=== PATIENT | female | born 1980 | race Caucasian/White ===

== ENCOUNTER 2020-03-25 07:20 | Inpatient (IN) | payer MEDICARE, OTHER ==
[2020-03-25 08:39] VITALS: BMI 42.5
[2020-03-25 08:41] LABS: BASO % 0.2 % (0-2.0); EOS % 1.2 % (0-4.5); HEMATOCRIT 34.6 % (32.4-45.2); HEMOGLOBIN 11.7 GM/dL (10.7-15.3); LYMPH % 21.8 % (8-40); MCH 29.7 pg (25.7-33.7); MCHC 33.7 g/dl (32.0-36.0); MEAN CELL VOLUME 88.2 fl (80-96); MEAN PLT VOLUME 6.9 fl (7.5-11.1); MONO % 6.6 % (3.8-10.2); NEUT % 70.2 % (42.8-82.8); PLATELET COUNT 238 K/MM3 (134-434); RBC 3.93 M/mm3 (3.60-5.2); RDW 14.7 % (11.6-15.6); WHITE BLOOD COUNT 7.9 K/mm3 (4.0-10.0)
[2020-03-25] MEDS ORDERED: ELECTROLYTE-148 SOLN 500 ML IV SCH (08:45)
[2020-03-25] MEDS ORDERED: CITRIC ACID/SODIUM CITRATE 30 ML UNIT-DOSE CUP PO ONE ×2 (08:45→09:14)
[2020-03-25 08:48] LABS: INR 0.92 (0.83-1.09); PROTHROMBIN TIME (PATIENT) 10.8 SEC (9.7-13.0)
[2020-03-25 08:50] LABS: ACTIVATED PTT 25.5 SECONDS (25.2-36.5)
[2020-03-25 09:07] LABS: BLOOD UREA NITROGEN 8.1 mg/dL (7-18); CALCIUM 9.1 mg/dL (8.5-10.1); CREATININE 0.6 mg/dL (0.55-1.3); POTASSIUM 3.9 mmol/L (3.5-5.1)
[2020-03-25] MEDS ORDERED: ELECTROLYTE-148 SOLN 1,000 ML IV SCH ×2 (09:15)
--- NOTE | 2020-03-25 09:19 | HP ---
Past Medical History - Primary Care Physician PCP:: Sharmaine Ayala - Admission Chief Complaint: Scheduled rpt c/s x 2 with BTL (DR Pernell Ayala) History of Present Illness: 39 yo EDC 04/10/2020 EGA 38 weeks scheduled for rpt c/s x 2 with BTL today due to h/o chronic HTN History Source: Patient Limitations to Obtaining History: No Limitations - Past Medical History GRAB HOOKER: Yes: Migraine ...: 4 ...Para: 2 ...Term: 2 ...: 0 ...Spon : 1 ...Induced : 0 ...Living Children: 2 ...Multiple Gestation: 0 ...LMP: 07/05/19 ... Weeks Gestation by Dates: 37.5 ...EDC by Dates: 04/10/20 ...EDC by Sono: 04/07/20 - Past Surgical History Past Surgical History: Yes: Hx Myomectomy: No Hx Transabdominal Cerclage: No - Smoking History Smoking history: Never smoked Have you smoked in the past 12 months: No - Alcohol/Substance Use Hx Alcohol Use: No History of Substance Use: reports: None - Social History Usual Living Arrangement: Yes: With Spouse History of Recent Travel: No Home Medications - Allergies Allergies/Adverse Reactions: Allergies Allergy/AdvReac Type Severity Reaction Status Date / Time No Known Allergies Allergy Verified 03/25/20 08:17 - Home Medications Home Medications: Ambulatory Orders Vits96/Iron Fum/Folic [ Tablet] 1 each PO DAILY 03/25/20 Family Medical History Family History: Unremarkable Review of Systems - Review of Systems Constitutional: reports: No Symptoms Eyes: reports: No Symptoms HENT: reports: No Symptoms Neck: reports: No Symptoms Cardiovascular: reports: No Symptoms Respiratory: reports: No Symptoms Gastrointestinal: reports: No Symptoms Genitourinary: reports: No Symptoms Breasts: reports: No Symptoms Reported Musculoskeletal: reports: No Symptoms Integumentary: reports: No Symptoms Neurological: reports: No Symptoms Endocrine: reports: No Symptoms Hematology/Lymphatic: reports: No Symptoms Psychiatric: reports: No Symptoms Physical Exam - Maternity Vital Signs: Vital Signs Temperature 98.6 F 03/25/20 08:25 Pulse Rate 99 H 03/25/20 08:25 Respiratory Rate 20 03/25/20 08:25 Blood Pressure 136/79 03/25/20 08:25 O2 Sat by Pulse Oximetry (%) Constitutional: Yes: Well Nourished, No Distress Eyes: Yes: WNL HENT: Yes: WNL Neck: Yes: WNL Cardiovascular: Yes: WNL Lungs: Clear to auscultation Breast(s): Yes: WNL - Abdominal Exam/OB Fundal Height: 38 Number of Fetuses: Single Presentation: Vertex Contractions: No Regularity: Irritability Intensity: Unaware Monitor Mode: External Heart Rate Location: [facility] Category: I Accelerations: Uniform Decelerations: None - Vaginal Exam/OB Vaginal Bleeding: No Dilatation (cm): defer Presentation: Vertex/Position - Physical Exam Musculoskeletal: Yes: WNL Extremities: Yes: WNL Edema: No Integumentary: Yes: WNL Deep Tendon Reflex Grade: Normal +2 ...Motor Strength: WNL Psychiatric: Yes: WNL - Labs Lab Results: CBC, BMP 03/25/20 08:00 03/25/20 08:00 Hemorrhage Risk Assessment - Risk Factors Medium Risk Factors: Yes: Prior , uterine surgery,or multiple laparo tomies, Obesity (BMI >40) Risk Score: 2 Risk Level: High Risk Problem List - Problems (1) AMA (advanced maternal age) multigravida 35+ Code(s): O09.529 - SUPERVISION OF ELDERLY MULTIGRAVIDA, UNSPECIFIED TRIMESTER (2) Previous delivery affecting , antepartum Code(s): O34.219 - MATERNAL CARE FOR UNSP TYPE SCAR FROM PREVIOUS DEL (3) Chronic benign essential hypertension, antepartum Code(s): O10.019 - PRE-EXISTING ESSENTIAL HTN COMP , UNSP TRIMESTER (4) 38 weeks gestation of Code(s): Z3A.38 - 38 WEEKS GESTATION OF Assessment/Plan Admit to LD Rpt c/s x 2 with BTL Risks, benefits, alternatives of rpt c/s with BTL discussed at length with pt and her ; all questions answered, pt fully understand the BTL is permanent sterilization; pt signed the consent form.
[2020-03-25] MEDS ORDERED: ONDANSETRON 4 MG/2 ML VIAL IVPUSH PRN (09:27)
[2020-03-25] MEDS ORDERED: morphine SULFATE/PF 0.5 MG/ML (2cc Syringe - QUVA) SPIN ONE (09:27)
[2020-03-25] MEDS ORDERED: OXYTOCIN 20 UNITS in 0.9% NS 20 UNIT/1,000 ML INFUS.BAG IV ONE ×2 (09:44→11:31)
[2020-03-25] MEDS ORDERED: morphine SULFATE/PF 0.5 MG/ML (2cc Syringe - QUVA) ONE (09:47)
[2020-03-25] MEDS ORDERED: ceFAZolin SODIUM 1 GM VIAL ONE (09:47)
[2020-03-25] MEDS ORDERED: SUCCINYLCHOLINE CHLORIDE 200 MG/10 ML SYRINGE ONE (09:48)
[2020-03-25] MEDS ORDERED: SODIUM CHLORIDE 0.9% P/F 10 ML VIAL IJ ONE (09:48)
[2020-03-25] MEDS ORDERED: PROPOFOL 20 ML ONE (09:48)
[2020-03-25] MEDS ORDERED: ePHEDrine SULFATE 50 MG/1 ML AMPULE ONE (09:51)
[2020-03-25] MEDS ORDERED: OXYTOCIN 10 UNITS/ML VIAL ONE (09:53)
[2020-03-25 12:15] LABS: CORD BASE EXCESS -3.4 mmol/L (0-2); CORD HCO3 24.2 mmHg (20-29); CORD PCO2 53.1 mmHg (30-78); CORD pH 7.277 (7.14-7.44)
[2020-03-25 12:25] LABS: CORD HCO3 25.4 mmHg (20-29); CORD PCO2 63.6 mmHg (30-78); CORD pH 7.219 (7.14-7.44)
[2020-03-25] MEDS ORDERED: METHYLERGONOVINE MALEATE 0.2 MG/1 ML AMP IM PRN (12:54)
[2020-03-25] MEDS ORDERED: oxyCODONE HCL 5 MG TABLET PO PRN (12:56)
[2020-03-25] MEDS ORDERED: IBUPROFEN 800 MG/8 ML IJ IVPB PRN (12:56)
[2020-03-25] MEDS ORDERED: ACETAMINOPHEN 1000 MG/100 ML VIAL (NON FORMULARY) IVPB PRN (12:59)
[2020-03-25] MEDS ORDERED: OXYTOCIN 20 UNITS in 0.9% NS 20 UNIT/1,000 ML INFUS.BAG IV SCH (13:00)
--- NOTE | 2020-03-25 13:07 | OP ---
Operative Note - Note: Operative Date: 03/25/20 Pre-Operative Diagnosis: 39 yo @ 38 weeks. Previous c/s, unknown scar. Chronic HTN. Obesity Operation: Rpt c/s x 2 with BTL via Pfannenstiel Incision Findings: Large lower segment fibroid 10 cm Baby girl born 9/9 Cord gases and blood collected Post-Operative Diagnosis: Same as Pre-op Surgeon: Gale Sainz Billet Worker: Efren Nieto Anesthesiologist/CORPORATE SERVICES MANAGER: Selena Quinones Anesthesia: Spinal Specimens Removed: placenta and membranes. Cord gases and blood Estimated Blood Loss (mls): 800 Fluid Volume Replaced (mls): 1,000 Operative Report Dictated: No
--- NOTE | 2020-03-25 15:13 | OP ---
DATE OF OPERATION: 03/25/2020 PREOPERATIVE DIAGNOSIS: [age] years old, G4, para 2-0-1-2 at 38 weeks, previous section and known scar, chronic hypertension, obesity. SURGERY: Repeat section x2 with bilateral tubal ligation via Pfannenstiel incision. SURGEON: Von De La Cruz MD CHANNELING MACHINE RUNNER: CHEYANNE Farley ANESTHESIA: ELIESER Keller, spinal FINDINGS: A large lower segment fibroid 10 cm, baby girl born, 9, 9. Cord gases and blood collected. POSTOPERATIVE DIAGNOSIS: [age] years old, G4, para 2-0-1-2 at 38 weeks, previous section and known scar, chronic hypertension, obesity. Fibroid uterus. SPECIMEN REMOVED: Placenta and membrane. Cord gas and blood. COMPLICATIONS: None. ESTIMATED BLOOD LOSS: 800 mL. FLUIDS REPLACED: Ringer's lactate 1000 mL. URINE OUTPUT: Clear urine, 300 mL, at the end of the procedure. DESCRIPTION OF PROCEDURE: The patient was taken to the operating room where spinal anesthesia was found to be adequate. She was then prepped and draped in the usual sterile fashion, dorsal supine position with a leftward tilt. A Pfannenstiel skin incision was made with a scalpel and carried through to the underlying layers of fascia with the Bovie. The fascia was incised in the midline, and the incision was extended laterally with bandage scissors. At the superior and the inferior aspect, the fascial incision was grasped with Jonh clamps, elevated, and now the underlying rectus muscles dissected off bluntly. The rectus muscles were then in the midline, the peritoneum identified, tented up, and entered sharply with Metzenbaum scissors. The peritoneal incision was then extended superiorly and inferiorly with good visualization of the bladder. Bladder blade was then inserted and vesicouterine peritoneum identified, grasped with pickups and entered sharply with Metzenbaum scissors. This incision was extended laterally and the bladder flap created digitally. The bladder blade was then reinserted, the lower uterine segment incised in transverse fashion with a scalpel. The uterine incision was extended laterally with bandage scissors. The bladder blade was removed and the infant's head delivered atraumatically. The nose and mouth were suctioned and the cord clamped and cut. The infant was handed off to the waiting camp dishwasher. The placenta was then removed manually, the uterus exteriorized and cleared of all clots and debris. Uterine incision was repaired with 1-0 chromic in a running locked fashion. Second layer of the same suture was used to obtain excellent hemostasis. Attention then was turned to the fallopian tubes, which were suture ligated, cut, and cauterized bilaterally without bleeding noted. Good hemostasis was assured. The gutters were cleared of all clots and debris, the uterus returned to the abdomen. Peritoneum was closed with 2-0 chromic. Fascia was reapproximated with 0 Vicryl in a running fashion, and the skin was closed with 4-0 Vicryl subcuticular fashion. The patient tolerated the procedure well. Sponge, lap, needle counts were correct x2. The patient was taken to recovery room in stable condition. VON DE LA CRUZ MD [id number]
[2020-03-25] MEDS: SIMETHICONE 80 MG TAB.CHEW (FP) PO SCH ×3 (15:27→22:00)
[2020-03-25] MEDS: CEFAZOLIN 1 GM/D5W 1 GM/50 ML BAG IVPB SCH (18:02)
[2020-03-26] MEDS: SIMETHICONE 80 MG TAB.CHEW (FP) PO SCH ×6 (01:50→21:27)
[2020-03-26] MEDS: CEFAZOLIN 1 GM/D5W 1 GM/50 ML BAG IVPB SCH ×2 (02:29→09:41)
[2020-03-26 08:39] LABS: BASO % 0.4 % (0-2.0); EOS % 1.2 % (0-4.5); HEMATOCRIT 34.1 % (32.4-45.2); HEMOGLOBIN 11.7 GM/dL (10.7-15.3); LYMPH % 11.3 % (8-40); MCH 30.5 pg (25.7-33.7); MCHC 34.3 g/dl (32.0-36.0); MEAN CELL VOLUME 88.9 fl (80-96); MEAN PLT VOLUME 6.8 fl (7.5-11.1); MONO % 4.3 % (3.8-10.2); NEUT % 82.8 % (42.8-82.8); PLATELET COUNT 222 K/MM3 (134-434); RBC 3.83 M/mm3 (3.60-5.2); RDW 15.2 % (11.6-15.6); WHITE BLOOD COUNT 11.3 K/mm3 (4.0-10.0)
[2020-03-26] MEDS: MAGNESIUM HYDROX 2400MG/30ML ORAL SUSPENSION 30 ML CUP PO SCH (09:40)
[2020-03-26] MEDS: ENOXAPARIN NA (PORCINE) 40 MG/0.4 ML DISP.SYRIN SQ SCH (09:40)
[2020-03-26] MEDS: IBUPROFEN 600 MG TABLET (FP) PO PRN ×2 (09:50→21:27)
[2020-03-26] MEDS: ACETAMINOPHEN 325 MG TABLET (FP) PO PRN ×2 (09:51→21:28)
[2020-03-26] MEDS ORDERED: DIPHTH,PERTUSS(ACELL),TET 0.5 ML DISP.SYRIN IM ONE (10:00)
[2020-03-26] MEDS ORDERED: IBUPROFEN 600 MG TABLET (FP) PO PRN (12:54)
[2020-03-26] MEDS ORDERED: BISACODYL 10 MG SUPP.RECT RC SCH (13:00)
--- NOTE | 2020-03-26 13:35 | PN ---
Post Progress Note Type of Delivery: Repeat C/S Vital Signs: Vital Signs Temperature 98.9 F 03/26/20 06:00 Pulse Rate 106 H 03/26/20 06:00 Respiratory Rate 18 03/26/20 06:00 Blood Pressure 137/68 03/26/20 06:00 O2 Sat by Pulse Oximetry (%) 99 03/25/20 12:45 Breast Exam: Yes: Soft Uterus: Yes: Fundus Firm Incision: Yes: Dressing dry and intact Abdomen/GI: Yes: Abdomen soft Lochia: Yes: Rubra Lochia, amount: Small Extremities: Yes: Calves non-tender - Labs Labs: CBC WBC 11.3 K/mm3 (4.0-10.0) H 03/26/20 08:13 RBC 3.83 M/mm3 (3.60-5.2) 03/26/20 08:13 Hgb 11.7 GM/dL (10.7-15.3) 03/26/20 08:13 Hct 34.1 % (32.4-45.2) 03/26/20 08:13 MCV 88.9 fl (80-96) 03/26/20 08:13 MCH 30.5 pg (25.7-33.7) 03/26/20 08:13 MCHC 34.3 g/dl (32.0-36.0) 03/26/20 08:13 RDW 15.2 % (11.6-15.6) 03/26/20 08:13 Plt Count 222 K/MM3 (134-434) 03/26/20 08:13 MPV 6.8 fl (7.5-11.1) L 03/26/20 08:13 Absolute Neuts (auto) 9.4 K/mm3 (1.5-8.0) H 03/26/20 08:13 Neutrophils % 82.8 % (42.8-82.8) 03/26/20 08:13 Lymphocytes % 11.3 % (8-40) D 03/26/20 08:13 Monocytes % 4.3 % (3.8-10.2) 03/26/20 08:13 Eosinophils % 1.2 % (0-4.5) 03/26/20 08:13 Basophils % 0.4 % (0-2.0) 03/26/20 08:13 Nucleated RBC % 0 % (0-0) 03/26/20 08:13 Assessment/Plan Postop day 1 ambulate advance diet
--- NOTE | 2020-03-26 16:52 | PN ---
Progress Note (short form) - Note Progress Note: Post op day#1.S/P C Section under spinal with duramorph uneventful.Patient stable and c/o some pain for which she is on medication.No any anesthesia related problem.Patient Dc from the anesthesia care.
[2020-03-26 22:51] VITALS: BP 126/81; PULSE 111; TEMP 98.3
[2020-03-27] MEDS: SIMETHICONE 80 MG TAB.CHEW (FP) PO SCH ×4 (01:02→12:27)
[2020-03-27] MEDS: ACETAMINOPHEN 325 MG TABLET (FP) PO PRN (06:21)
[2020-03-27] MEDS: IBUPROFEN 600 MG TABLET (FP) PO PRN (06:22)
[2020-03-27] MEDS: MAGNESIUM HYDROX 2400MG/30ML ORAL SUSPENSION 30 ML CUP PO SCH (09:24)
[2020-03-27] MEDS: ENOXAPARIN NA (PORCINE) 40 MG/0.4 ML DISP.SYRIN SQ SCH (09:24)
--- NOTE | 2020-03-27 11:47 | DS ---
Physical Exam-SIGNAL AND COMMUNICATIONS MAINTAINER Vital Signs: Vital Signs Temperature 98.3 F 03/26/20 22:00 Pulse Rate 111 H 03/26/20 22:00 Respiratory Rate 18 03/26/20 22:00 Blood Pressure 126/81 03/26/20 22:00 O2 Sat by Pulse Oximetry (%) 99 03/26/20 22:00 Constitutional: Yes: Well Nourished, No Distress, Calm Eyes: Yes: WNL, Conjunctiva Clear, EOM Intact HENT: Yes: WNL, Atraumatic, Normocephalic Neck: Yes: WNL, Supple, Trachea Midline Cardiovascular: Yes: WNL, Regular Rate and Rhythm Respiratory: Yes: WNL, Regular, CTA Bilaterally Gastrointestinal: Yes: WNL ...Rectal Exam: Yes: WNL Renal/: Yes: WNL Breast(s): Yes: WNL Musculoskeletal: Yes: WNL Extremities: Yes: WNL Integumentary: Yes: WNL Neurological: Yes: WNL, Alert, Oriented ...Motor Strength: WNL Psychiatric: Yes: WNL, Alert, Oriented Labs: CBC, BMP 03/26/20 08:13 03/25/20 08:00 Delivery - Delivery Type of Anesthesia: Spinal Episiotomy/Laceration: None EBL (cc): 800 Delivery, Single - Stages of Labor Date of Delivery: 03/25/20 Time of Delivery: 10:31 Time Placenta Delivered: 10:32 - Condition of Infant Engineering Psychologist/Inspector Mechanical Present: Yes Name: Joni Olguin Gender: Female Weight: 4.252 kg Position: OA Total Hours ROM (Hrs/Mins): 1 minute - 1 Minute Total Score: 9 5 Minutes Total Score: 9 - [place] Feeding Plan Initial Plan: Elected not to breastfeed exclusively throughout hospitalization Discharge Summary Problems reviewed: Yes Reason For Visit: C SECTION Current Active Problems 38 weeks gestation of (Acute) AMA (advanced maternal age) multigravida 35+ (Acute) Chronic benign essential hypertension, antepartum (Acute) Previous delivery affecting , antepartum (Acute) Hospital Course: non complicated Condition: Good - Instructions Diet, Activity, Other Instructions: regular Disposition: HOME - Home Medications Comprehensive Discharge Medication List: Ambulatory Orders Vits96/Iron Fum/Folic [ Tablet] 1 each PO DAILY 03/25/20
--- NOTE | 2020-03-31 17:25 | PATH ---
Surgical Pathology Report Patient Name: HANSEL CARRANZA [facility]. Rec. #: [id number] /Age/Gender: 1980 (Age: 39) / F Account: [id number] Location: [facility] OBS/SUPPRESSION CREW LEADER Taken: 03/25/2020 Received: 03/26/2020 Reported: 03/31/2020 Physicians: Gale Sainz M.D. Specimen(s) Received A: PLACENTA B: RIGHT FALLOPIAN TUBE C: LEFT FALLOPIAN TUBE Clinical History , 1, , spontaneous AB x1, 38 weeks' gestation, gestational, hypertension Final Diagnosis A. PLACENTA: THIRD TRIMESTER PLACENTA. TRIVASCULAR CORD. MEMBRANES WITH NO DIAGNOSTIC ABNORMALITIES. B. RIGHT FALLOPIAN TUBE, RESECTION: COMPLETE CROSS SECTION OF THE FALLOPIAN TUBE LUMEN IDENTIFIED. C. LEFT FALLOPIAN TUBE, RESECTION: COMPLETE CROSS SECTION OF THE FALLOPIAN TUBE LUMEN IDENTIFIED. Electronically Signed Jocelyne Jiang M.D. Gross Description A. The specimen is received fresh labeled "placenta" and is a 638 gram, 20 x 19 x 2.5 cm. placenta with attached membranes and umbilical cord. The attached membranes are glistening and translucent and insert marginally. The umbilical cord measures 30 cm. in length and averages 1.4 cm. in diameter. The cord inserts eccentrically 3 cm from the margin. No true knots or strictures are identified. Cut surface of the umbilical cord reveals 3 vessels. The surface is garcia-blue with minimal fibrin deposition and appropriate caliber vessels. The maternal surface is red-brown with focal defects. Sectioning reveals red-brown, spongy parenchyma. No lesions are identified. Fender Repairer sections are submitted in three cassettes as follows: 1- membrane rolls and umbilical cord; 2-3- full thickness sections of placenta. B. Received fresh labelled "right fallopian tube" is a 1.5 cm long by 0.5 cm in diameter portion of tissue consistent with a portion of fallopian tube. The fimbriated end is not identified. No focal lesions are identified. Fender Repairer section submitted in one cassette. C. Received fresh labelled "left fallopian tube" is a 1.0 cm long by 0.6 cm in diameter portion of tissue consistent with a portion of fallopian tube. The fimbriated end is not identified. No focal lesions are identified. Fender Repairer section submitted in one cassette. KWS/03/27/2020 sulki03/27/2020
== END 2020-03-27 14:10 | disposition home or self-care (01) | DRG 540 ==
LOC: JLDR 07:20 → J3W 13:33
PROVIDERS: ADMIT Obstetrics & Gynecology; ATTEND Obstetrics & Gynecology
PROC: 10D00Z1 Extraction of Products of Conception, Low, Open Approach (ICD-10-PCS; principal; 2020-03-25)
PROC: 0UL70ZZ Occlusion of Bilateral Fallopian Tubes, Open Approach (ICD-10-PCS; 2020-03-25)
DX: O82 Encounter for cesarean delivery without indication (principal); O10.02 Pre-existing essential hypertension complicating childbirth; O99.214 Obesity complicating childbirth; E66.01 Morbid (severe) obesity due to excess calories; O34.219 Maternal care for unspecified type scar from previous cesarean delivery; O99.824 Streptococcus B carrier state complicating childbirth; O34.13 Maternal care for benign tumor of corpus uteri, third trimester; D25.9 Leiomyoma of uterus, unspecified; Z30.2 Encounter for sterilization; Z3A.38 38 weeks gestation of pregnancy; Z37.0 Single live birth
CPT/HCPCS: 36415; 36600; 80048; 82803; 85025; 85610; 85730; 86780; 86850; 86900; 86901; 88302-TC; 88307-TC; 90715